=== PATIENT | male | born 1985 ===

== ENCOUNTER 2020-09-30 16:00 | Emergency (ER) | payer BC ==
[2020-09-30 18:28] LABS: Absolute Lymphocytes (CBC) 1.4 K/uL (0.7-4.9); Basophils % 0.3 % (0-1.3); Hematocrit 45.5 % (39.6-49.0); Lymphocytes % 14.7 % (15.3-44.8); MPV 8.6 fL (7.6-11.3)
[2020-09-30 18:29] LABS: Protime INR 1.05
--- NOTE | 2020-09-30 18:40 | RAD REPORT ---
EXAM DESCRIPTION: RAD - Chest Single View - 09/30/2020 6:16 pm CLINICAL HISTORY: SOB Chest pain. COMPARISON: No comparisons FINDINGS: Portable technique limits examination quality. The lungs are grossly clear. The heart is normal in size. No displaced fractures. IMPRESSION: No acute intrathoracic process suspected.
[2020-09-30 18:43] LABS: ALT/SGPT 36 U/L (12-78); AST/SGOT 16 U/L (15-37); Albumin 4.2 g/dL (3.4-5.0); Alkaline Phosphatase 73 U/L (45-117); BUN Blood Urea Nitrogen 8 mg/dL (7-18); Bicarbonate 29 mmol/L (21-32); Bilirubin Direct 0.1 mg/dL (0-0.2); Bilirubin Total 0.5 mg/dL (0.2-1.0); Glucose Level 97 mg/dL (74-106); Magnesium 2.2 mg/dL (1.8-2.4); Potassium 3.8 mmol/L (3.5-5.1); Protein, Total 7.5 g/dL (6.4-8.2); Sodium Level 141 mmol/L (136-145); Troponin (Emerg Dept Use Only) < 0.02 ng/mL (0.0-0.045)
[2020-09-30] MEDS ORDERED: NA CHLORIDE 0.9% 1,000 ML ONE (19:14)
[2020-09-30 19:28] LABS: Barbiturates NEGATIVE (NEGATIVE); Benzodiazepines NEGATIVE (NEGATIVE); Cocaine NEGATIVE (NEGATIVE); METHAMPHETAM NEGATIVE (NEGATIVE); Methadone NEGATIVE (NEGATIVE); Opiates NEGATIVE (NEGATIVE); Phencyclidine NEGATIVE (NEGATIVE); THC Cannibis NEGATIVE (NEGATIVE)
[2020-09-30 20:11] LABS: Urine Blood NEGATIVE (NEG); Urine Glucose NEGATIVE (NEG); Urine Protein NEGATIVE (NEG); Urine Specific Gravity 1.015 (1.005-1.030)
[2020-09-30 20:44] LABS: T3 Free 3.31 pg/mL (2.18-3.98); Thyroid Stimulating Hormone 0.636 uIU/mL (0.360-3.740)
--- NOTE | 2020-09-30 22:14 | EDPHYS ---
Physician Documentation [facility] Name: Ronald Lozano Age: 35 yrs Sex: Male : 1985 Arrival Date: 09/30/2020 Time: 16:03 Bed 23 Private MD: [facility] ED Physician Oneil Fishman HPI: 09/30 17:45 This 35 yrs old Unknown Male presents to ER via Ambulatory with complaints of Shortness cp Of Breath. 17:45 The patient has shortness of breath with light activity. cp 17:45 Onset: The symptoms/episode began/occurred today, about 1300 while walking at home. cp 17:45 Duration: The symptoms are intermittent. cp 17:45 Associated signs and symptoms: Pertinent positives: palpitations and shortness of cp breath. Severity of symptoms: in the emergency department the symptoms have resolved and did so just prior to arrival. Historical: - Allergies: 16:06 No Known Allergies; jd3 - Home Meds: 16:06 None [Active]; jd3 - PMHx: 16:06 None; jd3 - PSHx: 16:06 None; jd3 - Immunization history:: Adult Immunizations up to date. - Social history:: Smoking status: Patient denies any tobacco usage or history of. ROS: 17:50 Constitutional: Negative for body aches, chills, fever, poor PO intake. cp 17:50 Eyes: Negative for injury, pain, redness, and discharge. cp 17:50 ENT: Negative for ear pain, sore throat, difficulty swallowing, difficulty handling secretions. 17:50 Cardiovascular: Positive for chest pain, palpitations, Negative for edema. 17:50 Respiratory: Positive for shortness of breath, on exertion. Negative for cough, wheezing. 17:50 Abdomen/GI: Negative for nausea, vomiting, and diarrhea. 17:50 Back: Negative for pain at rest, pain with movement. 17:50 Neuro: Negative for altered mental status, dizziness, headache, syncope, weakness. 17:50 All other systems are negative. Exam: 17:58 Constitutional: The patient appears in no acute distress, alert, awake, comfortable, cp non-diaphoretic, non-toxic, well developed, well nourished. 17:58 Head/Face: Normocephalic, atraumatic. cp 17:58 Eyes: Periorbital structures: appear normal, Conjunctiva: normal, no exudate, no injection, Sclera: no appreciated abnormality, Lids and lashes: appear normal, bilaterally. 17:58 ENT: External ear(s): are unremarkable, Nose: is normal, Mouth: Lips: moist, Oral mucosa: pink and intact, moist, Posterior pharynx: is normal, airway is patent, no erythema, no exudate. 17:58 Chest/axilla: Inspection: normal, Palpation: is normal, no crepitus, no tenderness. 17:58 Cardiovascular: Rate: normal, Rhythm: regular, Heart sounds: murmur, not appreciated, rub, not appreciated, gallop, not appreciated, Edema: is not appreciated, JVD: is not appreciated. 17:58 Respiratory: the patient does not display signs of respiratory distress, Respirations: normal, no use of accessory muscles, no retractions, labored breathing, is not present, Breath sounds: are clear throughout, no decreased breath sounds, no stridor, no wheezing. 17:58 Abdomen/GI: Inspection: abdomen appears normal, Palpation: abdomen is soft and non-tender, in all quadrants, rebound tenderness, is not appreciated, voluntary guarding, is not appreciated, involuntary guarding, is not appreciated. 17:58 Back: pain, is absent, ROM is normal. 17:58 Skin: no rash present. 17:58 Neuro: Orientation: to person, place \T\ time. Mentation: is normal, Cerebellar function: is grossly normal, Motor: moves all fours, strength is normal, Sensation: is normal. 18:00 ECG was reviewed by the Attending Physician. cp Vital Signs: 16:06 BP 153 / 91; Pulse 75; Resp 16 S; Temp 98.7(TE); Pulse Ox 99% on R/A; Weight 95.25 kg jd3 (R); Height 6 ft. 0 in. (182.88 cm) (R); Pain 0/10; 18:00 BP 139 / 86; Pulse 106; Resp 18; Pulse Ox 99% ; ah 18:30 BP 142 / 88; Pulse 121; Resp 16; Pulse Ox 100% ; ah 19:00 BP 149 / 98; Pulse 117; Resp 23; Pulse Ox 99% ; ah 20:00 BP 132 / 88; Pulse 108; Resp 16; Temp 97.4; Pulse Ox 100% on R/A; sg 21:00 BP 136 / 82; Pulse 101; Resp 17; Pulse Ox 100% on R/A; sg 16:06 Body Mass Index 28.48 (95.25 kg, 182.88 cm) jd3 MDM: 17:29 Patient medically screened. sofie 18:00 Differential diagnosis: asthma, Bronchitis Myocardial Infarction pneumonia, cp Pneumothorax pulmonary edema, Pulmonary Embolism. 22:13 Data reviewed: vital signs, nurses notes, lab test result(s), EKG, radiologic studies, cp plain films. 22:13 Test interpretation: by ED physician or midlevel provider: ECG, chest xray negative for cp infiltrates. ED course: VSS. Symptoms improved. Will discharge to home for continued monitoring. 09/30 17:43 Order name: Basic Metabolic Panel; Complete Time: 19:41 cp 09/30 19:41 Interpretation: Normal except: GFR 77. 09/30 17:43 Order name: CBC with Diff; Complete Time: 19:41 09/30 19:41 Interpretation: Normal except: CATALINA% 80.0; LYM% 14.7. 09/30 17:43 Order name: LFT's; Complete Time: 19:41 cp 09/30 17:43 Order name: Magnesium; Complete Time: 19:41 cp 09/30 17:43 Order name: PT-INR; Complete Time: 19:41 cp 09/30 17:43 Order name: Troponin (emerg Dept Use Only); Complete Time: 19:41 09/30 19:42 Interpretation: Reviewed. 09/30 17:43 Order name: COVID-19 09/30 18:29 Order name: UDS; Complete Time: 19:41 cp 09/30 19:12 Order name: Urine Dipstick--Ancillary (enter results); Complete Time: 21:10 tt3 09/30 19:20 Order name: LAB Add On 09/30 19:20 Order name: D-Dimer; Complete Time: 19:53 cp 09/30 19:55 Order name: TSH; Complete Time: 21:10 cp 09/30 19:55 Order name: T3 Free; Complete Time: 21:10 cp 09/30 21:09 Order name: Troponin I cp 09/30 17:43 Order name: XRAY Chest (1 view); Complete Time: 19:41 cp 09/30 17:43 Order name: EKG; Complete Time: 17:44 09/30 17:43 Order name: Cardiac monitoring; Complete Time: 18:21 09/30 17:43 Order name: EKG - Nurse/Tech; Complete Time: 18:21 09/30 17:43 Order name: IV Saline Lock; Complete Time: 18:21 09/30 17:43 Order name: Labs collected and sent; Complete Time: 18:21 09/30 17:43 Order name: O2 Per Protocol; Complete Time: 18:21 09/30 17:43 Order name: O2 Sat Monitoring; Complete Time: 18:21 09/30 19:12 Order name: Urine Dipstick-Ancillary (obtain specimen); Complete Time: 19:12 sg EC:00 Rate is 91 beats/min. Rhythm is regular. MO interval is normal. QRS interval is cp prolonged at 116 msec. QT interval is normal. T waves are Inverted in lead aVR. Interpreted by me. Reviewed by me. Administered Medications: 19:08 Drug: NS 0.9% 1000 ml Route: IV; Rate: 1 bolus; Site: right antecubital; Disposition: 10/01 08:16 Co-signature as Attending Physician, Oneil Fishman MD I agree with the assessment and [facility] plan of care. Disposition: 09/30/20 22:14 Discharged to Home. Impression: Palpitations, Shortness of breath, Other chest pain. - Condition is Stable. - Discharge Instructions: Nonspecific Chest Pain, Holter Monitoring, Palpitations, Shortness of Breath, Aspirin and Your Heart. - Work release form, Medication Reconciliation Form, Thank You Letter, Antibiotic Education, Prescription Opioid Use form. - Follow up: Jaren Del Toro MD; When: 2 - 3 days; Reason: Recheck today's complaints. - Problem is new. - Symptoms have improved. Signatures: Dispatcher [employer] Ash Palomares RN RN sg Anderson, Corey, MD MD cha Attema, Lee, SENIOR NET ENGINEER-C SENIOR NET ENGINEER-Cla1 Oneil Gonsalez PA PA cp Davies, Jonathon, RN RN jd3 Harris, Amy, RN RN Corrections: (The following items were deleted from the chart) 09/30 22:14 22:14 09/30/2020 22:14 Discharged to Home. Impression: Palpitations; Shortness of cp breath. Condition is Stable. Forms are Medication Reconciliation Form, Thank You Letter, Antibiotic Education, Prescription Opioid Use. Follow up: Jaren Del Toro; When: 2 - 3 days; Reason: Recheck today's complaints. Problem is new. Symptoms have improved. cp 22:22 22:14 09/30/2020 22:14 Discharged to Home. Impression: Palpitations; Shortness of sg breath; Other chest pain. Condition is Stable. Discharge Instructions: Holter Monitoring, Palpitations, Shortness of Breath, Aspirin and Your Heart. Forms are Medication Reconciliation Form, Thank You Letter, Antibiotic Education, Prescription Opioid Use. Follow up: Jaren Del Toro; When: 2 - 3 days; Reason: Recheck today's complaints. Problem is new. Symptoms have improved. cp 10/01 19:20 09/30 17:45 Onset: The symptoms/episode began/occurred today, cp cp
--- NOTE | 2020-09-30 22:14 | ER ---
Nurse's Notes [facility] Name: Ronald Lozano Age: 35 yrs Sex: Male : 1985 Arrival Date: 09/30/2020 Time: 16:03 Bed 23 Private MD: Alcides Huitron Diagnosis: Palpitations;Shortness of breath;Other chest pain Presentation: 09/30 16:05 Chief complaint: Patient states: "around 1300 I was having shortness of breath, like I jd3 couldn't catch my breath.". Coronavirus screen: difficulty breathing, Client presents with at least one sign or symptom that may indicate coronavirus-19. Standard/surgical mask placed on the client. Provider contacted for isolation considerations. Ebola Screen: Patient negative for fever greater than or equal to 101.5 degrees Fahrenheit, and additional compatible Ebola Virus Disease symptoms. Initial Sepsis Screen: Does the patient meet any 2 criteria? No. Patient's initial sepsis screen is negative. Does the patient have a suspected source of infection? No. Patient's initial sepsis screen is negative. Risk Assessment: Do you want to hurt yourself or someone else? Patient reports no desire to harm self or others. Onset of symptoms was September 30, 2020. 16:05 Method Of Arrival: Ambulatory jd3 16:05 Acuity: DANIEL 3 jd3 Triage Assessment: 19:19 Respiratory: Reports shortness of breath after exertion, that is intermittent with sg palpitations the patient reports symptoms have resolved. 19:19 General: Appears in no apparent distress. well groomed, well developed, well nourished. sg Historical: - Allergies: 16:06 No Known Allergies; jd3 - Home Meds: 16:06 None [Active]; jd3 - PMHx: 16:06 None; jd3 - PSHx: 16:06 None; jd3 - Immunization history:: Adult Immunizations up to date. - Social history:: Smoking status: Patient denies any tobacco usage or history of. Screenin:00 Abuse screen: Denies threats or abuse. Denies injuries from another. Nutritional sg screening: No deficits noted. Tuberculosis screening: No symptoms or risk factors identified. Never had TB. Fall Risk None identified. Assessment: 17:40 General: Appears in no apparent distress. Behavior is calm, cooperative. Pain: Denies ah pain. Neuro: Level of Consciousness is awake, alert, obeys commands, Oriented to person, place, time, situation, Appropriate for age. Cardiovascular: Heart tones S1 S2 present Capillary refill < 3 seconds Patient's skin is warm and dry. Respiratory: Airway is patent Respiratory effort is even, unlabored, Respiratory pattern is regular, Breath sounds are clear bilaterally. GI: No signs and/or symptoms were reported involving the gastrointestinal system. Derm: Skin is intact, is healthy with good turgor, Skin is dry, Skin temperature is warm. Musculoskeletal: No signs and/or symptoms reported regarding the musculoskeletal system. 18:30 Reassessment: pt states that heart rate is up and he feels "that feeling"again. He ah states that it feels like it just takes his breath away. He states this is the same feeling that he had earlier. Reported to provider. Repeat EKG performed. 19:12 Reassessment: Urine collected at bedside and NS started to RAC. blanket provided. No ah other needs voiced at this time. 21:10 Reassessment: Patient appears in no apparent distress at this time. Patient and/or sg family updated on plan of care and expected duration. Pain level reassessed. Patient is alert, oriented x 3, equal unlabored respirations, skin warm/dry/pink. pt requesting Ice and Ice water, pt states his mother texted and stated that the family has a hx of clotting disorders, family hx of forming blood clots but unsure of what name the disorder is at this time. 22:33 Reassessment: pt reports the number he can be contacted for COVID results is [phone], personal cell. Vital Signs: 16:06 BP 153 / 91; Pulse 75; Resp 16 S; Temp 98.7(TE); Pulse Ox 99% on R/A; Weight 95.25 kg jd3 (R); Height 6 ft. 0 in. (182.88 cm) (R); Pain 0/10; 18:00 BP 139 / 86; Pulse 106; Resp 18; Pulse Ox 99% ; ah 18:30 BP 142 / 88; Pulse 121; Resp 16; Pulse Ox 100% ; ah 19:00 BP 149 / 98; Pulse 117; Resp 23; Pulse Ox 99% ; ah 20:00 BP 132 / 88; Pulse 108; Resp 16; Temp 97.4; Pulse Ox 100% on R/A; sg 21:00 BP 136 / 82; Pulse 101; Resp 17; Pulse Ox 100% on R/A; sg 16:06 Body Mass Index 28.48 (95.25 kg, 182.88 cm) [facility] ED Course: 16:03 Patient arrived in ED. ag5 16:03 Alcides Huitron DO is Private Physician. ag5 16:06 Triage completed. jd3 16:07 Arm band placed on. jd3 17:27 Oneil Gonsalez PA is PHCP. cp 17:27 Oneil Fishman MD is Attending Physician. cp 17:39 Rosemary Marin, RN is Primary Nurse. 18:05 Initial lab(s) drawn, by ut, sent to lab. EKG done. Inserted saline lock: 20 gauge in right antecubital area, using aseptic technique. Blood collected. 18:15 XRAY Chest (1 view) In Process Unspecified. EDMS 19:00 Patient has correct armband on for positive identification. Placed in gown. Bed in low sg position. Call light in reach. compliance monitor on. Pulse ox on. NIBP on. Warm blanket given. Head of bed elevated. 19:05 Primary Nurse role handed off by Rosemary Marin, RN sg 19:05 Ash Solano, RN is Primary Nurse. sg 19:11 Urine collected: clean catch specimen, clear. sg 19:14 Report received from Rosemary KNOTT. sg 22:13 Jaren Del Toro MD is Referral Physician. cp 22:20 No provider procedures requiring assistance completed. IV discontinued, intact, sg bleeding controlled, No redness/swelling at site. Pressure dressing applied. Administered Medications: 19:08 Drug: NS 0.9% 1000 ml Route: IV; Rate: 1 bolus; Site: right antecubital; Outcome: 22:14 Discharge ordered by . cp 22:20 Discharged to home ambulatory, with friend. sg 22:20 Condition: good 22:20 Discharge instructions given to patient, Instructed on discharge instructions, follow up and referral plans. safety practices, Demonstrated understanding of instructions, follow-up care. 22:22 Patient left the ED. sg Addendum: 10/03/2020 08:37 Addendum: COVID-19 Result: Negative result given to RN to notify pt. Notified pt of s s negative COVID 19 swab results. Pt advised that even with a negative test result they should remain in isolation until symptom free for 3 days without medication. Pt also advised to return to the ED for worsening symptoms. Signatures: Dispatcher [employer] EDMS Ash Solano RN RN sg Smirch, Shelby, RN RN ss Oneil Gonsalez PA PA cp Davies, Jonathon, RN RN jd3 Jelena Cade ag5 Rosemary Marin RN HEDY Corrections: (The following items were deleted from the chart) 09/30 16:08 16:06 Pulse 75bpm; Resp 16bpm; Spontaneous; Pulse Ox 99% RA; Temp 98.7F Temporal; 95.25 jd3 kg Reported; Height 6 ft. 0 in. Reported; BMI: 28.4; Pain 0/10; jd3
[2020-10-01 03:00] VITALS: TEMP 97.4; O2SAT 100
[2020-10-01 03:03] VITALS: BP 136/82
--- NOTE | 2020-10-02 07:44 | EKG ---
Test Date: 2020-09-30 Test Time: 17:56:35 Field Human Resources Manager: BRANDON MEASUREMENT RESULTS: Intervals: Rate: 91 HI: 160 QRSD: 116 QT: 360 QTc: 442 [place]: P: 67 HI: 160 QRS: -10 T: 46 INTERPRETIVE STATEMENTS: Normal sinus rhythm with sinus arrhythmia Possible Left atrial enlargement Incomplete right bundle branch block Borderline ECG No previous ECG available for comparison Electronically Signed On 10-02-20 07:41:03 TRACK MOVING MACHINE OPERATOR by Jaren Del Toro
== END 2020-09-30 22:22 | disposition home or self-care (01) ==
LOC: ER 16:00
DX: R07.89 Other chest pain (principal); R00.2 Palpitations; Z20.828 Contact with and (suspected) exposure to other viral communicable diseases
CPT/HCPCS: 93005 ×2; 85025; 80048; 36415; 83735; 85610; 85379; 80076; 80307 ×8; 84443; 81003; 84484 ×2; 84481; 71045; 99285; U0002; J7030